=== PATIENT | male | born 1990 | race Caucasian/White ===

== ENCOUNTER → 2023-06-17 10:08 | Outpatient (CLI) | payer OTHER, SELFPAY ==
--- NOTE | ~2023-06-17 | XR_ITS ---
XR_[id number]_CR DATE: 06/17/2023 10:29 INDICATION: Neck pain TECHNIQUE: AP, open-mouth, lateral views COMPARISON: None FINDINGS: There is minimal levoscoliosis of the cervical spine. There is straightening of the cervica l lordosis. There is minimal posterior subluxation at C3-4. The cervical interspaces appear relatively preserved. C1 and C2 are normally aligned and the odontoid process is intact. No fracture or dislocation or lock ed facet or prevertebral soft tissue swelling. IMPRESSION: Straightening and minimal levoscoliosis Minimal retrolisthesis at C3-4 Reviewed, dictated and finalized at [facility]. Reviewed, dictated and finalized at [facility]. [employer] ADMINISTRATION PROGRAM CHAIR
--- NOTE | ~2023-06-17 | XR_ITS ---
XR thoracic spine 2V DATE: 06/17/2023 10:29 INDICATION: Mid back pain TECHNIQUE: AP, lateral standing views, swimmer's COMPARISON: None FINDINGS: Mild thoracic dextroscoliosis. No fracture or dislocation or bone destruction. The thoracic pedicles are intact. No paraspinal soft tissue thickening. IMPRESSION: Mild dextroscoliosis Reviewed, dictated and finalized at [facility]. CREW SUPERVISOR IMPRESSION: Mild dextroscoliosis
== END ==
PROVIDERS: PCP Chiropractor; Visit Provider Chiropractor
DX: M41.84 Other forms of scoliosis, thoracic region (principal); M41.82 Other forms of scoliosis, cervical region; M43.12 Spondylolisthesis, cervical region
CPT/HCPCS: 72040; 72070